=== PATIENT | male | born 2000 | race Caucasian/White ===

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

== ENCOUNTER 2024-01-02 22:01 | Emergency (ER) | payer MEDICAID, OTHER ==
[~2024-01-02] VITALS: Ht 188 cm; Wt 110.0 kg
[~2024-01-02 22:01] MED LIST: IBUP-2029 MT
[2024-01-02 22:10] VITALS: BP 135/82; PULSE 100; RESP 20; TEMP 98.6; O2SAT 99
== END 2024-01-02 22:12 | disposition left against medical advice (07) ==
LOC: ER 22:01
DX: F41.0 Panic disorder [episodic paroxysmal anxiety] (principal); F41.9 Anxiety disorder, unspecified
CPT/HCPCS: 82962; 93005; 99283